=== PATIENT | female | born 1980 | race Caucasian/White ===

== ENCOUNTER 2019-03-11 23:49 | Emergency (ER) | payer MEDICARE, MEDICAID ==
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
== END 2019-03-12 00:32 | disposition home or self-care (01) ==
LOC: ER 23:49
DX: R22.42 Localized swelling, mass and lump, left lower limb (principal); M79.662 Pain in left lower leg; F17.210 Nicotine dependence, cigarettes, uncomplicated
CPT/HCPCS: 85379; 99283